=== PATIENT | female | born 1960 | race Caucasian/White ===

== ENCOUNTER → 2016-06-23 | Outpatient (CLI) | payer OTHER ==
[~2016-06-23] VITALS: Ht 157.5 cm; Wt 84.8 kg
[~2016-06-23] MED LIST: ABILIFY10 MG; ABILIFY10 MG PO; ADVAIR 250-501 EACH INH; ADVAIR 500-501 EACH; ADVAIR 500-501 EACH INH; AMBIEN; AMITRIPTYLINE H10 M3 PO; ASPIR 8181 M1; ASPIR 8181 MG PO; AUGMENTIN 875875 M1 PO; BENADRYL25 MG; BUTALB-APAP-CA1 EACH PO; CALCIUM 500 +1 EAC5 PO; CELEBREX 200 M200 MG PO; CIPROFLOXACIN500 M3 PO; CLONAZEPAM 1 MG1 M1 PO; CLONIDINE0.1; COREG6.25 MG PO; COUMADIN 1MG TAB1 M1 PO; CYCLOBENZAPRINE5 MG PO; CYMBALTA60 MG PO; DETROL LA4 MG PO; DEXEDRINE15 MG PO; DEXTROAMP-AMPHE15 MG PO; DEXTROSTAT10 MG PO; ESZOPICLONE3 MG PO; FISH OIL 1,0001 EAC8; FLEXERIL PO; FLONASE 0.05%50 MCG NASAL; HALDOL 0.5 MG0.5 MG PO; HYDROCODON-ACE1 EAC5 PO; HYDROCODON-ACE1 EAC7; HYDROXYZINE HCL50 MG PO; IBUPROFEN 800800 M1; K-DUR10 MEQ PO; KLOR-CON 1010 MEQ PO; LASIX 20 MG TAB20 MG PO; LEVOXYL200 MCG PO; LORAZEPAM 0.50.5 MG; LUNESTA3 MG PO; MELOXICAM7.5 MG; METFORMIN HCL500 MG PO; MINIPRESS2 MG PO; MIRALAX17 GM PO; MOBIC15 MG PO; NORCO 5-325 TA1 EACH PO; NORFLEX100 MG; ONDANSETRON HCL4 M2 PO; PERCOCET 10-321 EAC1 PO; PERCOCET 10-321 EACH PO; PERCOCET 5-3251 EACH PO; PRAZOSIN 1 MG CA1 M1 PO; PRILOSEC 20 MG20 MG PO; PRISTIQ50 MG PO; PROVENTIL; PYRIDIUM200 MG PO; SPIRIVA; SPIRIVA18 MCG INH; TIROSINT125 MCG PO; VENTOLIN HFA INH8 GM IH; VITAMIN A25000 UNIT PO; XALATAN2.5 ML OPHTHALMIC; ZYRTEC10 MG PO
--- NOTE | ~2016-06-23 | HPC ---
[facility] [place] [address] PAIN MANAGEMENT CONSULTATION Name: OK JOHNSON [facility] [id number] Admission: 06/23/16 Attend Phys: Alonso Corona DO Discharge: Date of : 60 Report #: [id number] THIS REPORT FOR: //name// CC: Alonso GOMEZ DATE OF SERVICE: 06/23/2016 CHIEF COMPLAINT: Low back pain, left shoulder pain. HISTORY OF PRESENT ILLNESS: As you know, the patient is a morbidly obese 55-year-old female, who has multiple pain generators, returning in followup visit for her medication management. The patient and I have had a long discussion about recent surgical evaluation with Dr. Iyer. The patient was advised that given her pain has improved and she is only experiencing numbness and tingling, this is likely residual from previous surgeries and that no surgical option exists. The patient was confused as she was discussing pain issues, but apparently there was no surgical option for the patient to proceed. She returns today in followup visit requesting assistance with medication management. She has been followed at our clinic at [facility], but has transferred her care over to [facility] due to issues of schedule complex. She returns today requesting refill on medications. She is taking hydrocodone 10/325 four a day for pain control. ALLERGIES: LITHIUM, TETRACYCLINE, RED DYE, AMINOPHYLLINE, PAXIL, GABAPENTIN, VERAPAMIL, BUPROPION, FLUOXETINE, TOPIRAMATE, CHU'S WORT. SOCIAL HISTORY: The patient denies tobacco, IV or illicit drug use. Admits to 3 alcoholic beverages per week. She is on disability. She is unaccompanied today. IMAGING: No new imaging available. PHYSICAL EXAMINATION: VITAL SIGNS: Blood pressure 127/87, pulse of 104, respiratory rate 20, unlabored. The patient is 94% on room air, height 5 feet 2 inches tall, weight 187 pounds. BMI calculated 34.2. GENERAL: Well developed, well nourished, well hydrated, morbidly obese 55-year-old female appearing her stated age. She is placing pain score today at 8/10. HEENT: Normocephalic and atraumatic. Pupils are equal, round, and reactive to light. EXTREMITIES: Show no clubbing, no cyanosis, no edema. MUSCULOSKELETAL: Tenderness to palpation is again noted over the left shoulder. Active and passive range of motion of the left shoulder causes intensification of pain. There is palpatory tenderness over the paraspinal musculature of the [facility] [address] [place] [address] PAIN MANAGEMENT CONSULTATION Name: OK JOHNSON Room #: REG Tru Torres#: [id number] Admission: 06/23/16 Attend Phys: Alonso Corona DO Discharge: Date of : 60 Report #: [id number] lower lumbar spine. No spinous process tenderness. Seated straight leg raising negative. Supine straight leg raising negative. Angela's test is negative. ASSESSMENT: 1. Chronic left shoulder pain. 2. Myofascial pain syndrome. 3. Lumbosacral spondylosis without radicular symptoms. 4. Complicated medical therapy utilizing the scheduled medications. 5. Morbid obesity. 6. Chronic intractable pain. PLAN: 1. The patient has returned today in followup visit to our clinic at [facility] for continuation of therapy. The patient recently had surgical evaluation. She was deemed a nonsurgical candidate and advised to continue with conservative treatment. The patient indicates that she is somewhat confused about the discussion as there was original discussion of surgical options, but when she indicated that her pain was improved with the use of steroids, it was determined she was not a surgical candidate. I do not have any of this information. This is being provided to me by the patient herself. I have no written information from the physician about this discussion. As far conservative treatment, the following was discussed with the patient today. 2. The patient will be continued on hydrocodone 10/325 mg 1 tab p.o. q. 6 hours p.r.n. for pain. I have given the patient #120, releases of today, 4 weeks from today, and 8 weeks from today. I did advise the patient that the medications themselves will ultimately begin to be less effective, escalating the doses would not be offered. We ultimately have to be weaned off these medications as they will not be [facility]p treatment options. She states she understands, but at this time, wishes to continue the therapy. 3. The patient and I had a very long discussion about concerted effort at weight loss. I do believe the patient should seek evaluation from a bariatric surgeon. Her weight is a significant contributor to her overall pain and needs to be addressed. Not addressing her body habitus and how it affects her ongoing pain is tantamount to not treating her symptoms. I strongly recommend evaluation by bariatric surgeon for possible gastric sleeve or bypass, as I do not feel the patient can lose her weight on her own. This weight is causing significant axial back pain issues for which the patient continues to complain. 4. The patient has done well with her previous epidural injections. She may ultimately need to undergo these procedures again. We will be available to see her back after trial procedure. 5. The patient will return to our clinic in 3 months. At that time, we will [address] [place] [address] PAIN MANAGEMENT CONSULTATION Name: OK JOHNSON Room #: REG TOMEKA Torres#: [id number] Admission: 06/23/16 Attend Phys: Alonso Corona DO Discharge: Date of : 60 Report #: [id number] discuss alteration in medication therapy as long-term opioid management in her case would not be recommended. By: [id number] Alonso Corona DO /nt
[2016-06-23 11:19] VITALS: BP 127/87
== END ==
LOC: PAIN 07:03
DX: M79.1 Myalgia (principal); M25.512 Pain in left shoulder; M47.27 Other spondylosis with radiculopathy, lumbosacral region; E66.01 Morbid (severe) obesity due to excess calories; Z68.34 Body mass index [BMI] 34.0-34.9, adult; I10 Essential (primary) hypertension; Z87.891 Personal history of nicotine dependence

== ENCOUNTER → 2016-09-29 | Outpatient (CLI) | payer OTHER ==
[~2016-09-29] VITALS: Ht 157.5 cm; Wt 110.2 kg
[~2016-09-29] MED LIST changes: +COMPAZINE10 MG PO; +DEXTROAMPHETAMI15 MG PO; +VENTOLIN HFA 1818 GM INH; +ZALEPLON 10 MG10 M1 PO
--- NOTE | ~2016-09-29 | HPC ---
[facility] [place] [address] [place] [address] PAIN MANAGEMENT CONSULTATION Name: OK JOHNSON Room #: REG [facility] MAnna.#: [id number] Admission: 09/29/16 Attend Phys: Alonso Corona DO Discharge: Date of : 60 Report #: [id number] THIS REPORT FOR: //name// CC: Alonso GOMEZ DATE OF SERVICE: 09/29/2016 CHIEF COMPLAINT: Low back pain, left shoulder pain, bilateral lower extremity pain. HISTORY OF PRESENT ILLNESS: As you know, the patient is a morbidly obese 55-year-old female who has had multiple pain generators including her low back, bilateral lower extremities, left shoulder, intermittent neck pain and generalized body pain. 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 Currently, they are continuing evaluation. She returns today in followup visit having run out of her opioid medications. She "cannot remember how she did that." She does return on the actual day that the medications would be renewed. I believe she just run low of medications and did not preplanned. She returns today in followup visit stating no real changes in her medical history except for the recent diagnosis of this benign tumor. The pain generators that she had are relatively unchanged. She is placing pain score of 9/10. ALLERGIES: See the extensive list in chart. MEDICATIONS FOR PAIN: Hydrocodone 10/325 one tab every 6 hours p.r.n. for pain. SOCIAL HISTORY: The patient denies tobacco, IV or illicit drug use. Admits to 3 alcoholic beverages per week. She is on disability. She is unaccompanied today. IMAGING: No new imaging available. PHYSICAL EXAMINATION: VITAL SIGNS: Blood pressure 149/97, pulse is 108, respiratory rate 20, unlabored. The patient is 100% on room air, height 5 feet 2 inches tall, weight 243 pounds, BMI calculated 44.4. GENERAL: Well-developed, well-nourished, well hydrated, morbidly obese 55-year-old female appearing her stated age, placing current pain score at 9/10. HEENT: Normocephalic, atraumatic. Pupils equal, round, reactive to light. Extraocular muscles are intact. Speech is fluent. EXTREMITIES: Show no clubbing, no cyanosis, no edema. MUSCULOSKELETAL: Seated straight leg raising negative. Supine straight leg raising positive. Fabere's test negative. Modified Gaenslen's positive for axial low back pain. Ankle clonus negative[place] [address] PAIN MANAGEMENT CONSULTATION Name: OK JOHNSON Room #: REG [facility] Brian#: [id number] Admission: 09/29/16 Attend Phys: Alonso Corona DO Discharge: Date of : 60 Report #: [id number] ASSESSMENT: 1. Chronic lumbar radiculopathy. 2. Lumbosacral spondylosis with radicular symptoms. 3. Chronic intractable pain. 4. Fibromyalgia. PLAN: 1. The patient returns today in followup visit requesting refill on medications. We have been providing the patient with hydrocodone 10/325 one tab every 6 hours p.r.n. for pain for some time. She denies any side effects with the use of medication, does wish to continue the therapy. I have advised the patient that she needs to be more vigilant with use of her medication. She needs to make appointments, when she is running low of medications not when she is out of medications. We have accommodated the patient today, but have advised her at this point forward, she needs to make appointments 2 weeks prior to running low of her medications. 2. We will continue to be watchful of the findings from this benign tumor that she is experiencing intracranially. Workup continues and we will continue to monitor whether or not adjustments in medication therapy needed. 3. The patient was provided a prescription of hydrocodone 10/325 one tab every 6 hours p.r.n. for pain, given #120, releases of today, 4 weeks from today, 8 weeks from today. 4. The patient to return to our clinic in less than 3 months for refill of medications and to discuss other treatment options including nonopioid related treatment options. <ELECTRONICALLY SIGNED> By: Alonso Corona DO 10/09/16 0705 [id number] Alonso Corona DO /nt
[2016-09-29 14:43] VITALS: BP 149/97
== END ==
LOC: PAIN 13:19
DX: M54.16 Radiculopathy, lumbar region (principal); M47.817 Spondylosis without myelopathy or radiculopathy, lumbosacral region; G89.29 Other chronic pain; M79.7 Fibromyalgia; Z68.41 Body mass index [BMI] 40.0-44.9, adult

== ENCOUNTER → 2017-05-25 | Outpatient (CLI) | payer OTHER ==
[~2017-05-25] VITALS: Ht 157.5 cm; Wt 97.5 kg
[~2017-05-25] MED LIST changes: +ADDERALL 20 MG20 MG PO; -ASPIR 8181 M1; +ASPIR-TRIN325 MG PO; +DEXTROAMP-AMPHE30 MG PO; +HYDROCODONE-AP1 EAC6 PO; +MAXALT10 MG PO; +XYREM500 MG/1 M PO
--- NOTE | ~2017-05-25 | HPC ---
[facility] [address] [address] PAIN MANAGEMENT CONSULTATION Name: OK JOHNSON Room #: REG [facility]..#: [id number] Admission: 05/25/17 Attend Phys: Alonso Corona DO Discharge: Date of : 60 Report #: [id number] THIS REPORT FOR: //name// CC: Alonso Andersen DATE OF SERVICE: 05/25/2017 REFERRING PHYSICIAN: Dr. Saige Andersen CHIEF COMPLAINT: Low back pain, left shoulder pain and midback pain. HISTORY OF PRESENT ILLNESS: As you know, the patient is a morbidly obese 56-year-old female with a longstanding history of low back pain, lower extremity pain and paresthesias, midback pain after a fall she sustained out of a window and left lower extremity pain. She has returned today in followup visit indicating pain levels of around 8/10. She states her pain is deep aching, burning, numbness, tingling and electrical like in sensation, exacerbated with activities, sleeping, sitting, lying down and improves with rest, medications and stretching. She returns today in followup visit to discuss options for treatment for her low back pain and also discuss issues with midback pain, status post fall. ALLERGIES: AMINOPHYLLINE, LITHIUM, DIVALPROEX, TETRACYCLINE, SULFAMETHOXAZOLE, TRIAMTERENE, PAXIL, GABAPENTIN, VERAPAMIL, BUPROPION, FLUOXETINE, TOPIRAMATE, CHU'S WORT. CURRENT MEDICATIONS: Adderall 20 mg twice a day, hydrocodone 5/325 one tab every 6 hours p.r.n. for pain, dextromethorphan/amphetamine 30 mg twice a day, Maxalt 10 mg per day, albuterol 2 puffs q. 4 hours, zaleplon 10 mg once a day, Compazine 10 mg once a day, cyclobenzaprine 10 mg 3 times a day, furosemide 20 mg once a day, potassium chloride 10 mEq p.o. q. day, Advair 50/500 two puffs b.i.d., MiraLax 17 grams per day, metformin 500 mg once a day, aspirin 325 mg once a day, calcium carbonate 1 tab per day, Cymbalta 60 mg per day and levothyroxine 125 mcg per day. SOCIAL HISTORY: The patient denies tobacco, IV or illicit drug use. Admits to three alcoholic beverages per week. She is on disability. She is unaccompanied today. IMAGING: No new imaging available. PHYSICAL EXAMINATION: VITAL SIGNS: Blood pressure 120/84, pulse 89, respiratory rate 16, unlabored, the patient 99% on room air. Height 5 feet 2 inches tall, weight 215 pounds [address] [address] PAIN MANAGEMENT CONSULTATION Name: OK JOHNSON [facility] [id number] Admission: 05/25/17 Attend Phys: Alnoso Corona DO Discharge: Date of : 60 Report #: [id number] BMI calculated 39.3. GENERAL: Well-developed, well-nourished, well-hydrated, morbidly obese 56-year-old female appearing her stated age. She is in mild distress secondary to pain placing current pain score 8/10. HEENT: Normocephalic and atraumatic. Pupils are equal, round and reactive to light. Extraocular muscles are intact. Sclerae nonicteric without injection. NEUROLOGIC: Cranial nerves 2-12 are grossly intact. Speech is fluent. The patient deemed a poor historian. LUNGS: Clear, no wheeze, rhonchi or rales. CARDIOVASCULAR: Regular. No appreciable gallop or rub. ABDOMEN: Soft, obese, nontender and nondistended. EXTREMITIES: Show no clubbing and no cyanosis. MUSCULOSKELETAL: There is palpatory tenderness over the paraspinal musculature of the thoracic spine, no spinous process tenderness. No ecchymosis. No noted traumatic injury. No spinous process tenderness. Upper extremity strength appears equal and symmetrical, intact to light touch from T1 through T12 dermatomes. The lower extremity strength is equal and symmetrical. There is some giveaway strength noted on the right when compared to the left with hip flexion and knee extension. Pain is elicited in the low back, buttock and SI joint area. Seated straight leg raising is negative. Supine straight leg raising is positive right. Angela's test negative. Modified Gaenslen's positive for axial low back pain. Ankle clonus negative. Babinski is negative. ASSESSMENT: 1. Thoracic pain, status post fall. 2. Chronic lumbar radiculopathy. 3. Lumbosacral spondylosis with radiculopathy. 4. Displacement of lumbar intervertebral disk with radiculopathy. 5. Lumbar degeneration. 6. Chronic intractable pain. PLAN: 1. The patient has returned today in followup visit indicating increasing back pain after a fall from a window. We recommend the patient undergo some imaging of the thoracic spine. We have sent the patient for this imaging of the thoracic spine in x-ray form. We will review the findings once they are available. I am concerned about the possibility of a compression fracture that could have occurred during the fall given her longstanding pain issues. There is a possibility that the patient suffered a myofascial injury and needs to be evaluated from a PT standpoint. She will undergo the x-ray imaging. If no findings specific for compression fractures are noted. I would recommend the patient begin physical therapy twice a week, 4 weeks, to address thoracic paraspinal musculature pain. 2. The patient has been coming to our clinic for a very long period of time in regards to chronic low back pain, lower extremity pain and paresthesias. I recommend the patient undergo MRI of lumbar spine without contrast. This could [facility] [address] [place] [address] PAIN MANAGEMENT CONSULTATION Name: OK JOHNSON Room #: [facility].#: [id number] Admission: 05/25/17 Attend Phys: Alonso Corona DO Discharge: Date of : 60 Report #: [id number] be obtained at her earliest convenience. We will review the findings and determine surgical options. She has trialled epidural injections and conservative medication therapy and has failed each of these types of procedures and I believe moving forward with more aggressive treatment options would be warranted. The patient was provided the MRI lumbar spine without contrast to undergo as quickly as possible. 3. I have provided the patient with a prescription of [place] 1 tab p.o. q. 6 hours p.r.n. for pain. I have given the patient 120. I have released those today, 4 weeks from today, 8 weeks from today, 3 months' worth of medication. I advised the patient to take the medication only as directed. She is not to take the medication more frequently. She is not to rely on the medication prophylactically. 4. We will see the patient back in followup visit once she has completed her MRI. At that time, I want to discuss the findings and discuss more definitive treatment option as we wish to ultimately have the patient come off of opioid therapy given the current climate involving opioid therapy and the fact that chronic immediate release medications are not appropriate treatment options for chronic low back pain. <ELECTRONICALLY SIGNED> By: Alonso Corona DO 06/02/17 0736 [id number] Alonso Corona DO /nt
[2017-05-25 10:11] VITALS: BP 120/84
== END ==
LOC: PAIN 01-12 14:31
DX: M41.85 Other forms of scoliosis, thoracolumbar region (principal); M43.22 Fusion of spine, cervical region; M47.27 Other spondylosis with radiculopathy, lumbosacral region; M51.36 Other intervertebral disc degeneration, lumbar region; E03.9 Hypothyroidism, unspecified

== ENCOUNTER → 2017-06-03 | Outpatient (CLI) | payer OTHER | LOC: MRI 08:12 | DX: M51.16 Intervertebral disc disorders with radiculopathy, lumbar region (principal); M51.37 Other intervertebral disc degeneration, lumbosacral region ==

== ENCOUNTER → 2017-06-08 | Outpatient (CLI) | payer OTHER ==
[~2017-06-08] VITALS: Ht 157.5 cm; Wt 99.8 kg
--- NOTE | ~2017-06-08 | HPC ---
[facility] [place] [address] PAIN MANAGEMENT CONSULTATION Name: OK JOHNSON Room #: REG [facility]..#: [id number] Admission: 06/08/17 Attend Phys: Alonso Corona DO Discharge: Date of : 60 Report #: [id number] THIS REPORT FOR: //name// CC: Alonso Andersen DO DATE OF SERVICE: 06/08/2017 CHIEF COMPLAINT: Low back pain, left shoulder pain, left forearm pain status post fall with fractures. HISTORY OF PRESENT ILLNESS: As you know, the patient is morbidly obese 56-year-old female who has longstanding history of low back pain, bilateral lower extremity pain and paresthesias, also left shoulder pain. She returns today in followup visit to review MRI imaging of the lumbar spine as well as to review x-ray imaging after a fall she sustained out of a window. The patient indicates that she sustained a fall on the ice on Wednesday of this year where she slipped, fell and broke both the radius and the ulna. She has sought evaluation with [facility], but does wish to change her care to Dr. Kurt Corona at [facility] as she has been treated by Dr. Corona in the past for a total knee arthroplasty. The patient returns today to review x-ray imaging and MRI findings and discuss her desire to move forward with surgery of the fractures of the left upper extremity. ALLERGIES: AMINOPHYLLINE, LITHIUM, DIVALPROEX, TETRACYCLINE, SULFAMETHOXAZOLE, TRIAMTERENE, PAXIL, GABAPENTIN, VERAPAMIL, BUPROPION, FLUOXETINE, TOPIRAMATE, CHU'S WORT. CURRENT MEDICATIONS: See the extensive list in chart. SOCIAL HISTORY: The patient denies tobacco, IV or illicit drug use. Admits to 3 alcoholic beverages per week. She is on disability. She is unaccompanied today. PQRS: The patient has known osteoarthritis. No rheumatoid arthritis. Pain intensity 7/10. She is a fall risk. She has had multiple falls over the past couple of weeks. She is not on blood thinners. She does have a history of hypertension treated with medications. She has been on opioid therapy for greater than 6 months. She is under contract with our services for hydrocodone therapy. She is a moderate risk for opioid abuse, but we do monitor carefully. Pain assessment tool is 63/70 indicating near complete interference of daily activities secondary to pain. PHYSICAL EXAMINATION: VITAL SIGNS: Blood pressure 136/89, pulse is 114, respiratory rate 16, [place] [address] PAIN MANAGEMENT CONSULTATION Name: OK JOHNSON Room #: REG [facility]..#: [id number] Admission: 06/08/17 Attend Phys: Alonso Corona DO Discharge: Date of : 60 Report #: [id number] unlabored. The patient is 97% on room air. Height 5 feet 2 inches tall, weight 220 pounds, BMI calculated 40.2. GENERAL: Well-developed, well-nourished, well-hydrated, class 3 morbidly obese 56-year-old female, appears her stated age. She is in moderate distress secondary to pain and placing current pain score 7/10 left forearm. HEENT: Normocephalic, atraumatic. Pupils equal, round, reactive to light. EXTREMITIES: Show no clubbing, no cyanosis, no edema. MUSCULOSKELETAL: The patient has swelling in the hand on the left when compared to the right. Movement of the left upper extremity causes intensification of pain from the fracture site. She continues to experience a palpatory tenderness over the thoracic spine and palpatory tenderness over the lumbar spine. IMAGING DATA: X-ray of the thoracic spine obtained on 05/25/2017 shows a subtle levoscoliosis of the thoracolumbar junction. There are no fractures or dislocations. Osseous structures are normal. MRI of lumbar spine obtained on 06/03/2017 shows degenerative disk disease from L3-L4 through L5-S1. At L4-L5, there is a small chronic left paracentral disk protrusion and extrusion, which causes effacement of the ventral thecal sac affecting left L5 nerve root in the lateral recess. No significant right-sided neural foraminal narrowing except for mild narrowing at the L5-S1 level. ASSESSMENT: 1. Thoracic pain status post fall. 2. Chronic lumbar radicular symptoms. 3. Lumbosacral spondylosis with radicular symptoms. 4. Mildly displaced lumbar intervertebral disk. 5. Lumbar degeneration. 6. Left forearm fractures status post fall. 7. Chronic intractable pain. PLAN: 1. The patient has returned today in followup visit where we have taken over 40 minutes of time reviewing the patient's thoracic x-ray imaging as well as her MRI of the lumbar spine. I am pleased to say that there are no changes in thoracic spine and thus her symptoms are myofascial related. I am pleased that she has not suffered any fractures of the vertebral bodies after her fall out of the window or this recent fall on the ice. The symptom she is experiencing is myofascial in nature and recommend conservative treatment with stretching exercises, rest, relaxation and tincture of time. 2. In regards to the patient's lumbar spine, she does have some minor changes at the L4-L5 level that would attribute to some back pain and some radiation down the left leg, but no findings for right leg involvement. I believe part of her symptoms are related to just a generalized pain disorder, but might be contributed to by this change in the lumbar region. We have recommended that the patient use conservative treatment option. She is on medication and treated [facility] [address] [place] [address] PAIN MANAGEMENT CONSULTATION Name: ELIZABETHOK JIMENEZ Room #: REG [facility]#: [id number] Admission: 06/08/17 Attend Phys: Alonso Corona DO Discharge: Date of : 60 Report #: [id number] with that therapy and this is not the major issue of the day. The major contributor to pain at this time is the recent fall and fractures of the radius and ulna on the left that has yet to be addressed from orthopedic standpoint. At this point, the patient could be a candidate for an epidural injection, but this will not be provided until which time she is cleared from an orthopedic standpoint to undergo the procedure and this may be weeks to months depending on what needs to be done to correct the fractures in the left upper extremity. 3. We have taken the liberty of contacting Dr. Kurt Corona's office at [facility]. They are going to contact the patient to be seen in consultation. They do have the imaging done at [facility] from her initial evaluation before she was sent to [facility]. They can review those findings and discuss surgical options with the patient at their earliest convenience. The patient was advised we have made the call today and that Dr. Corona's office will be contacting her directly. 4. We have made no changes in the patient's medical management. At this time, the patient has hydrocodone available four a day. I have advised the patient to use this medication judiciously. She is not to increase her dose of medication. If medications are necessary post-surgery to address her surgical issues, she can have these written by her orthopedic surgeon. These would be only for a short period of time and then return to her 4 a day dose of hydrocodone. As directed, she is not to use the medications we provide for acute pain issues. By: [id number] Alonso Corona DO /nt
[2017-06-08 11:24] VITALS: BP 136/89
== END ==
LOC: PAIN 07:05
DX: M47.27 Other spondylosis with radiculopathy, lumbosacral region (principal); G89.29 Other chronic pain; M54.6 Pain in thoracic spine; M79.632 Pain in left forearm; Z88.8 Allergy status to other drugs, medicaments and biological substances; Z88.1 Allergy status to other antibiotic agents; Z88.2 Allergy status to sulfonamides

== ENCOUNTER → 2017-08-17 | Outpatient (CLI) | payer OTHER ==
[~2017-08-17] VITALS: Ht 157.5 cm; Wt 104.4 kg
--- NOTE | ~2017-08-17 | HPC ---
[facility] [place] [address] PAIN MANAGEMENT CONSULTATION Name: OK JOHNSON Room #: REG [facility].#: [id number] Admission: 08/17/17 Attend Phys: Alonso Corona DO Discharge: Date of : 60 Report #: [id number] THIS REPORT FOR: //name// CC: Alonso GOMEZ DO Physician staff DATE OF SERVICE: 08/17/2017 REFERRING PHYSICIAN: Saige Gomez DO CHIEF COMPLAINT: Low back pain, left shoulder pain, left forearm pain, right upper back pain. HISTORY OF PRESENT ILLNESS: As you know, the patient is a morbidly obese 56-year-old female with longstanding history of multiple pain generators, most recent low back pain, left shoulder, right upper back, left forearm. The patient has returned today in followup visit requesting a refill on medications, stating pain level of 7/10. We have had long discussions with the patient in the past about the fact that she is not showing improvement with opioid medication. She continues to take opioids, but continues to report pain at elevated levels. I am not confident that the patient is providing true and complete information. She returns today also indicating that her daughter had attempted to commit suicide by taking hydrocodone and clonazepam from her mother. She wishes to discuss this today. From a standpoint of medical changes in the last month, the patient has had no changes. She states she is stable on her therapy. ALLERGIES: AMINOPHYLLINE, LITHIUM, DIVALPROEX, TETRACYCLINE, SULFAMETHOXAZOLE, TRIAMTERENE, PAXIL, GABAPENTIN, VERAPAMIL, BUPROPION, FLUOXETINE, TOPIRAMATE, CHU'S WORT. CURRENT MEDICATIONS: See the extensive list in chart. SOCIAL HISTORY: The patient denies tobacco, IV or illicit drug use. Admits to 7 alcoholic beverages per week. She is on disability. She is unaccompanied today. PQRS, the patient has osteoarthritis of the knees and the hands and low back. No rheumatoid arthritis. Pain intensity is rated today at level 7/10, unchanged from previous evaluation. She is a fall risk. She has had multiple falls. For various reasons, she is on opioids for a very long period of time. She is treated for hypertension with medications, but no blood thinners. She places pain impact at around 63/70, near complete interference of daily activities secondary to pain. She is at moderate to high risk for opioid abuse. [facility] [address] [place] [address] PAIN MANAGEMENT CONSULTATION Name: OK JOHNSON [id number] Admission: 08/17/17 Attend Phys: Alonso Corona DO Discharge: Date of : 60 Report #: [id number] PHYSICAL EXAMINATION: VITAL SIGNS: Blood pressure 141/89, pulse 99, respiratory rate 20 and unlabored, the patient 99% on room air. Height 5 feet 2 inches tall, weight 230.2 pounds, BMI calculated at 42.1. GENERAL: Well-developed, well-nourished, well-hydrated, class 3 morbidly obese 56-year-old female, appearing her stated age. Pain is rated at around 7/10. HEENT: Normocephalic, atraumatic. Pupils equal, round, reactive to light. EXTREMITIES: Show no clubbing, no cyanosis, no edema. MUSCULOSKELETAL: The patient has multiple tender points, no specific trigger points. There is a tender point located in the mid portion of the back, appears related to rhomboid muscle. She has positive back pain with provocation and axial loading. Seated straight leg raising negative. Supine straight leg raising negative. Angela test negative. Modified Gaenslen's positive for axial low back pain. ASSESSMENT: 1. Continued thoracic pain, right sided. 2. Chronic lumbar radicular symptoms. 3. Lumbosacral spondylosis with radicular symptoms. 4. 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 5. Lumbar degeneration. 6. Myofascial pain. 7. Chronic intractable pain. 8. Opioid dependency. 9. Chronic intractable pain. PLAN: 1. The patient returns today in followup visit where she has indicated to this physician today that her daughter had attempted to commit suicide with hydrocodone and clonazepam obtained from the patient. The patient and I had a very long discussion today about our concern about the continued use of opioid medications and benzodiazepines. I do not feel it is a safe situation to have these medications in the house and I have recommended multiple times during today's visit that we discontinue these dangerous medications in the fact that the daughter is left alone in the home for many times during the day as she has already shown propensity to use opioids and benzodiazepines in an attempt to commit suicide. The patient states that this never happened before, though I am fairly comfortable in my assessment that this has probably happened more times and the patient knows, she is just not aware of. The patient also has significant cognitive issues that make me even more concerned about the medications. The patient states that she is not taking the medication in 4 days, which makes no sense as she is indicating that she takes them on a consistent basis. This information was only provided to us when we advised the patient she was going to be undergoing drug screening today. I am very concerned about this situation to the point where I am recommending that the [facility] [place] [address] PAIN MANAGEMENT CONSULTATION Name: OK JOHNSON Room #: REG [facility] M.R.#: [id number] Admission: 08/17/17 Attend Phys: Alonso Corona DO Discharge: Date of : 60 Report #: [id number] patient discontinue these therapies. The patient became quite emotional and indicated that she could "not live without these medications." I tried to redirect the patient to some degree as I indicated that she had been off the pain medications for this being the fifth day, total of 4 complete days and yet, her pain scores are exactly the same as it was when she was last here, but on the medication. Again, I do not feel comfortable continuing the medication with this patient, but given her emotional lability and her pleading for medication therapy, I advised her I will provide her 2 months' worth of medication at this point forward with the caveat that she must obtain a Biometric Safe to place the medications in. She cannot hide the medications in her house. They must be locked up safely and consistently. She should carry no more than 1 pill at any given time. I have attempted to provide the patient with information about the likelihood that the patient's daughter will once again attempt suicide with the available medications and that without safeguarding these medications, this is tantamount to providing the daughter with the means to kill herself. The patient states she understands and will attempt more secure conditions for her medications. 2. The patient and I discussed at length the request for our oral toxicology. The patient admits that she has not taken her medication in over 4 days, but this was not done until after she was advised she was undergoing toxicology. I am quite concerned about this admission as this would indicate the patient is likely taking the medications inappropriately or her daughter is actually taking more medication than she is aware of. This in conjunction with the fact the patient "cannot remember" to take pills sometimes and sometimes, inadvertently takes too many would indicate that she is probably not the safest individual to be on these medications. We will have the patient undergo the toxicology report. We will review the findings. If the findings show aberrancy, I have indicated the patient I will discontinue opioid medications in her case. 3. The patient was provided a prescription of hydrocodone 10/325 one tab every 6 hours p.r.n. for pain. I have given the patient a prescription of #120, releases of today and 4 weeks from today. I did provide this with the caveat that the patient must obtain a safe. Before she can fill these medications, I need to see the receipt of that safe in the clinic before she can fill these opioid medications. I am very concerned about the situation at home, and I am not willing to provide these medications to an individual that cannot safeguard the therapy. 4. We will see the patient back in followup visit in 2 months. We will review the drug screen that is obtained today and discuss treatment options based on the findings. <ELECTRONICALLY SIGNED> By: Alonso Corona DO 08/18/17 [id number] Alonso Corona DO /nt
[2017-08-17 10:53] VITALS: BP 141/89
== END ==
LOC: PAIN 07:04
DX: M47.27 Other spondylosis with radiculopathy, lumbosacral region (principal); M51.16 Intervertebral disc disorders with radiculopathy, lumbar region; G89.4 Chronic pain syndrome; M79.1 Myalgia; F11.20 Opioid dependence, uncomplicated